=== PATIENT | female | born 1945 | race Caucasian/White ===

== ENCOUNTER 2016-08-08 08:28 | Day surgery (SDC) | END 2016-08-08 08:29 | disposition home or self-care (01) | CPT/HCPCS: 66984; A9270; V2632 ==

== ENCOUNTER 2017-02-14 13:27 | Outpatient (CLI) | payer MEDICARE, OTHER ==
--- NOTE | 2017-02-14 19:30 | Ultrasound Report ---
LIMITED ABDOMINAL ULTRASOUND: 02/14/2017 CLINICAL INDICATION: Hernia recurrence. TECHNIQUE: Real-time scanning was performed with licensing representative static images obtained. FINDINGS: Ultrasound of the palpable region identified by the patient was performed. There is recur rence of an abdominal wall hernia. Mesh is seen along the anterior margin, but a wide hernia neck is present. Superficial to the mesh, there is a 1.9 x 1.8 x 0.6 cm seroma. IMPRESSION: RECURRENCE OF AN ANTERIOR ABDOMINAL WALL HERNIA. SMALL SEROMA SUPERFICIAL TO THE MESH. JOB #: [id number] EXT JOB #:[id number]
== END 2017-02-14 13:28 | disposition home or self-care (01) ==
LOC: DI 13:27
PROVIDERS: ATTEND Family Medicine
DX: K43.2 Incisional hernia without obstruction or gangrene (principal)
CPT/HCPCS: 76705

== ENCOUNTER 2017-02-25 09:21 | Day surgery (SDC) | payer MEDICARE, OTHER ==
[2017-02-25] MEDS ORDERED: ceFAZolin 2 GM/50 ML 50 ML IV ONE (09:26)
[2017-02-25] MEDS ORDERED: LACTATED RINGERS 1,000 ML IV ONE ×2 (10:10→12:47)
[2017-02-25] MEDS ORDERED: ONDANSETRON 4 MG/2 ML VIAL ONE ×2 (10:37→13:17)
[2017-02-25] MEDS ORDERED: BUPIVACAINE 0.5% PF 30 ML VIAL SUBQ ONE (11:23)
[2017-02-25] MEDS ORDERED: METOCLOPRAMIDE 10 MG/2 ML VIAL IVP ONE (11:43)
[2017-02-25] MEDS ORDERED: MIDAZOLAM 2 MG/2 ML VIAL IVP ONE (11:43)
[2017-02-25] MEDS ORDERED: PHENYLEPHRINE 50 MG/5 ML VIAL IV ONE (11:43)
[2017-02-25] MEDS ORDERED: KETOROLAC 30 MG/ML VIAL IVP ONE (11:43)
[2017-02-25] MEDS ORDERED: LIDOCAINE-MPF 2% 5 ML VIAL IM ONE (11:43)
[2017-02-25] MEDS ORDERED: PROPOFOL 200 MG/20 ML VIAL IVP ONE (11:43)
[2017-02-25] MEDS ORDERED: ACETAMINOPHEN 1,000 MG/100 ML VIAL IV ONE (11:43)
[2017-02-25] MEDS ORDERED: ROCURONIUM 50 MG/5 ML VIAL IVP ONE (11:43)
[2017-02-25] MEDS ORDERED: DEXAMETHASONE 4 MG/ML VIAL IVP ONE (11:43)
[2017-02-25] MEDS ORDERED: NEOSTIGMINE 1 MG/1 ML 10 ML MDV IVP ONE (11:43)
[2017-02-25] MEDS ORDERED: ePHEDrine 50 MG/ML VIAL IVP ONE (11:43)
[2017-02-25] MEDS ORDERED: GLYCOPYRROLATE 1 MG/5 ML VIAL IVP ONE (11:43)
[2017-02-25] MEDS ORDERED: SUCCINYLCHOLINE 200 MG/10 ML VIAL IVP ONE (11:43)
--- NOTE | 2017-02-25 12:28 | OPERATIVE REPORT ---
Operative Report - General Procedure Date: 02/25/17 Planned Procedure: Incisional herniorrhaphy Pre-Op Diagnosis: Incisional hernia Post Op Diagnosis: Recurrent incisional hernia - Procedure Note Primary Surgeon: Panchito Mendoza Anesthesia Provider: Dr. Olga Frazier Anesthesia Technique: General ET tube, Local (30 mL 1/2% marcaine) Estimated Blood Loss (in cc): 5 (Aqfmwh=619 mL) Complications: None. - Other Other Information/Narrative: OPERATIVE DESCRIPTION/REPORT: After verbal and written informed consent was obtained detailing the risks of infection, bleeding requiring transfusion with its risks, nerve injury, and , and after I met with the patient confirming the surgery and the site of the surgery, the patient was brought to the operative suite and placed supine on the operating table. Great care was taken to avoid pressure points to prevent pressure necrosis or nerve injury. Monitoring devices were applied along with TEDs and pneumatic compressive stockings (to prevent DVT). The patient received preoperative antibiotics for surgical prophylaxis. Dr. Olga Frazier sedated and anethetized the patient for the entire procedure. The patient was prepped and draped in the usual sterile manner. With the patient draped my initials were clearly visible. A "time in" then confirmed that the paitient was identified with 3 identifiers (name, birthdate and medical record number), the history and physical was in the chart, the signed consent confirming the procedure was in the chart, the patient was in the correct position, the aforementioned prophylactic measures were in place or given, we had the correct personel and equipment to complete the procedure and that anesthesia, surgery and nursing were given an opportunuty to express any concerns. With the agreement of everyone in the room, we proceeded with the operation. A vertical midline incision was made tracing the previous incision and overlying the mass and dissection was carried down to the hernia sac using a combination of Metzenbaum scissors, scalpel, and Bovie electrocautery. The sac was cleared of overlying adherent tissue, and the fascial defect was delineated. There was a cystic structure encountered during the dissection that expressed yellow-green thick fluid and I cultured this fluid. The structure was not bowel or related to bowel. The cystic structure was outside the fascia and I am thinking it represents a sterile stitch fluid collection. The cystic structure was sent for pathologic evaluation. The fascia was cleared of any adherent tissue for a distance 1.5 cm from the defect. The sac was resected using a combination of Metzenbaum scissors and Bovie electrocautery. The sac was noted to include mesh on the patient's left hand side whereas the right side was well incorporated. The mesh on the left was resected. The defect was closed using a Ventralex ST Hernia PAtch (Ref#[id number]/ Lot#[id number]/Date 2018-10-29) sewing it in place using interrupted 2-0 PDS. This was sewn in place circumferentially and the fascia was closed over the mesh with a running 2-0 PDS. The subcutaneous tissues were copiously irrigated , and then closed using an interrupted 2-0 Vicryl. The fascia and skin were injected with 0.5% marcaine. Meticulous hemostasis was obtained using Bovie electrocautery. The skin incision was approximated with a running 4-0 Monocryl. At this point a time out was performed that confirmed that all the counts were correct, the procedure that was performed, the blood loss, the IV fluids administered, and the patient s condition. Having tolerated the procedure well, the patient was subsequently extubated and taken to recovery room in good and stable condition. Since there is no place on this document to record the procedure actually performed it was a recurrent incisional herniorrhaphy with mesh and culture of subcutaneous fluid.
[2017-02-25] MEDS ORDERED: fentaNYL 100 MCG/2 ML VIAL ONE (12:49)
[2017-02-25] MEDS ORDERED: SCOPOLAMINE PATCH TOP ONE (13:17)
[2017-02-25] MEDS ORDERED: PROMETHAZINE 25 MG/1 ML VIAL ONE (13:17)
[2017-02-25 14:06] VITALS: BP 116/47
== END 2017-02-25 09:22 | disposition home or self-care (01) ==
LOC: SDS 09:21
PROVIDERS: ATTEND Surgery
PROC: 0WUF0JZ Supplement Abdominal Wall with Synthetic Substitute, Open Approach (ICD-10-PCS; principal; 2017-02-25 10:30)
DX: K43.2 Incisional hernia without obstruction or gangrene (principal); J45.909 Unspecified asthma, uncomplicated; I25.10 Atherosclerotic heart disease of native coronary artery without angina pectoris; I25.2 Old myocardial infarction; G40.909 Epilepsy, unspecified, not intractable, without status epilepticus; I10 Essential (primary) hypertension; G47.00 Insomnia, unspecified; Z90.49 Acquired absence of other specified parts of digestive tract; K21.9 Gastro-esophageal reflux disease without esophagitis; Z79.82 Long term (current) use of aspirin
CPT/HCPCS: 49565; 49568; 93005; C1781; J0131; J0690; J3490; J7120; 87070; 87205; 88305

== ENCOUNTER 2018-03-03 08:00 | Outpatient (CLI) | payer MEDICARE, OTHER ==
[2018-03-03 19:12] LABS: CREATININE 0.8 mg/dL (0.4-1.0)
== END 2018-03-03 08:01 | disposition home or self-care (01) ==
LOC: LAB.WCP 08:00
PROVIDERS: ATTEND Orthopaedic Surgery
DX: R94.4 Abnormal results of kidney function studies (principal)
CPT/HCPCS: 36415; 82565; 84520

== ENCOUNTER 2018-04-14 08:00 | Outpatient (CLI) | payer MEDICARE, OTHER ==
[2018-04-14 19:20] LABS: BASOPHILS % (AUTO) 0.5 %; EOSINOPHILS % (AUTO) 2.3 %; HGB - HEMOGLOBIN 11.9 g/dL (12.0-16.0); LYMPHOCYTES % (AUTO) 64.1 %; MEAN CORPUSCULAR HEMOGLOBIN 29.2 pg (27.0-31.0); MEAN CORPUSCULAR VOLUME 88.4 fL (81.0-99.0); MEAN PLATELET VOLUME 9.1 fL (7.9-10.8); MONOCYTES % (AUTO) 5.6 %; NEUTROPHILS % (AUTO) 27.5 %; PLT - PLATELET COUNT 304 10^3/uL (130-450); RED BLOOD COUNT 4.07 10^6/uL (4.20-5.40); RED CELL DISTRIBUTION WIDTH 14.5 % (12.0-15.0); WHITE BLOOD COUNT 11.7 x10^3/uL (4.8-10.8)
[2018-04-14 19:23] LABS: ABNORMAL LYMPHS % (MANUAL) 0 %
[2018-04-14 19:30] LABS: ALBUMIN 4.1 g/dL (3.2-5.5); ALBUMIN/GLOBULIN RATIO 1.3 (1.0-2.2); BILIRUBIN,TOTAL 0.3 mg/dL (0.2-1.0); CALCIUM 9.4 mg/dL (8.5-10.3); CREATININE 0.9 mg/dL (0.4-1.0); TOTAL PROTEIN 7.2 g/dL (6.7-8.2)
[2018-04-14 19:51] LABS: BAND NEUTROPHILS % (MANUAL) 2 %; DIFFERENTIAL COMMENT MANUAL DIFFERENTIAL; EOSINOPHILS # (MANUAL) 0.4 10^3/uL (0-0.7); LYMPHOCYTES % (MANUAL) 58 %; MONOCYTES # (MANUAL) 0.6 10^3/uL (0.0-1.0); NEUTROPHILS # (MANUAL) 2.8 10^3/uL (1.5-6.6); NEUTROPHILS % (MANUAL) 22 %; PLATELET ESTIMATE, MANUAL NORMAL (130-450,000) (NORMAL); PLATELET MORPHOLOGY NORMAL APPEARANCE (NORMAL); RBC MORPHOLOGY (MULTIPLE) NORMAL APPEARANCE (NORMAL)
== END 2018-04-14 08:01 | disposition home or self-care (01) ==
LOC: LAB.WCP 08:00
PROVIDERS: ATTEND Family Medicine
DX: R51 Headache (principal)
CPT/HCPCS: 36415; 80053; 85025; 85651; 86140

== ENCOUNTER 2018-04-27 16:49 | Outpatient (CLI) | payer MEDICARE, OTHER ==
--- NOTE | 2018-04-28 11:08 | Ultrasound Report ---
Reason: PAROTID MASS, RIGHT Procedure Date: 04/27/2018 Accession Number: [id number] / [id number] Procedure: US - Head or Neck Soft Tissue CPT Code: FULL RESULT: EXAM: NECK ULTRASOUND EXAM DATE: 04/27/2018 05:30 PM. CLINICAL HISTORY: PAROTID MASS, RIGHT. COMPARISON: [facility] 05/31/2010 5:21 PM. TECHNIQUE: Real-time sonographic imaging was performed by the machine adjuster leader case trim utilizing color-flow. Multiple surgical sales representative static images were saved for review. FINDINGS: Along superior aspect of right parotid lobe, is a 2.0 x 1.0 x 1.1 cm, 1.2 cc solid noncompressible mass with probable small foci of internal vascularity. Increased through transmission. Margins are partially ill-defined. IMPRESSION: A 2 cm nonspecific mass is noted along superior aspect of right parotid gland. Margins are partially ill-defined. Potential malignancy. Case discussed with Dr. Engel on day of study at 11:05 AM. RADIA
== END 2018-04-27 16:50 | disposition home or self-care (01) ==
LOC: DI 16:49
PROVIDERS: ATTEND Family Medicine
DX: K11.8 Other diseases of salivary glands (principal)
CPT/HCPCS: 76536

== ENCOUNTER 2018-08-03 08:00 | Outpatient (CLI) | payer MEDICARE, OTHER ==
[2018-08-03 19:16] LABS: CHOL/HDL RATIO 3.4 (<4.4); CHOLESTEROL 165 mg/dL; HDL CHOLESTEROL 48 mg/dL; LDL CHOLESTEROL,CALCULATED 82 mg/dL; LDL/HDL RATIO 1.7 (<4.4); VLDL CHOLESTEROL 35 mg/dL
[2018-08-03 19:57] LABS: HB2 TOTAL 12.7 g/dL; HEMOGLOBIN A1C 0.62 g/dL; HEMOGLOBIN A1C % 6.6 % (4.6-6.2)
== END 2018-08-03 23:59 | disposition home or self-care (01) ==
LOC: LAB.WCP 08:00
PROVIDERS: ATTEND Family Medicine
DX: G40.909 Epilepsy, unspecified, not intractable, without status epilepticus (principal); R73.01 Impaired fasting glucose; E78.5 Hyperlipidemia, unspecified; Z11.59 Encounter for screening for other viral diseases
CPT/HCPCS: 80061; 83036; 83721; 86704

== ENCOUNTER 2019-02-10 16:03 | Outpatient (CLI) | payer MEDICARE, OTHER ==
--- NOTE | 2019-02-11 13:51 | XRAY Report ---
Reason: UNSPECIFIED FALL,INITIAL ENCOUNTER,LOW BACK PAIN Procedure Date: 02/10/2019 Accession Number: [id number] / [id number] Procedure: XR - Lumbar Spine 2 View CPT Code: FULL RESULT: EXAM: LUMBAR SPINE RADIOGRAPHY EXAM DATE: 02/10/2019 04:36 PM HISTORY: UNSPECIFIED Fall, initial Encounter, low BACK PAIN. COMPARISON: None. TECHNIQUE: AP and Lateral two view exam FINDINGS: Slight convex left curvature of the lower thoracic level with corresponding mild convex right curvature at the mid lumbar level. No fracture identified. There is evidence of mild diffuse disk space narrowing and small osteophyte formation. L4-L5 and L5-S1 have evidence of facet osteoarthritis. IMPRESSION: No fracture. Mild spinal asymmetry. Mild spondylosis. RADIA
== END 2019-02-10 16:04 | disposition home or self-care (01) ==
LOC: DI 16:03
PROVIDERS: ATTEND Family Medicine
DX: M47.816 Spondylosis without myelopathy or radiculopathy, lumbar region (principal); Z91.81 History of falling
CPT/HCPCS: 72100

== ENCOUNTER 2020-01-20 08:00 | Outpatient (CLI) | payer MEDICARE, OTHER ==
[2020-01-20 11:54] LABS: HB2 TOTAL 12.8 g/dL; HEMOGLOBIN A1C 0.67 g/dL; HEMOGLOBIN A1C % 6.9 % (4.6-6.2)
[2020-01-20 12:15] LABS: ALBUMIN/GLOBULIN RATIO 1.3 (1.0-2.2); ALKALINE PHOSPHATASE 51 IU/L (42-121); ALT ALANINE AMINOTRANSFERASE 24 IU/L (10-60); AST ASPARTATE AMINOTRANSFERASE 24 IU/L (10-42); BILIRUBIN,TOTAL 0.3 mg/dL (0.2-1.0); BUN - BLOOD UREA NITROGEN 23 mg/dL (6-20); CARBON DIOXIDE - CO2 27 mmol/L (21-32); CHLORIDE 107 mmol/L (101-111); CHOL/HDL RATIO 3.5 (<4.4); CHOLESTEROL 176 mg/dL; CREATININE 0.8 mg/dL (0.4-1.0); GLUCOSE 145 mg/dL (70-100); HDL CHOLESTEROL 51 mg/dL; LDL CHOLESTEROL,CALCULATED 93 mg/dL; LDL/HDL RATIO 1.8 (<4.4); SODIUM 140 mmol/L (135-145); VLDL CHOLESTEROL 32 mg/dL
== END 2020-01-20 23:59 | disposition home or self-care (01) ==
LOC: LAB.WCP 08:00
PROVIDERS: ATTEND Family Medicine
DX: I10 Essential (primary) hypertension (principal); R73.01 Impaired fasting glucose
CPT/HCPCS: 36415; 80053; 80061; 83036; 83721

== ENCOUNTER 2020-02-09 09:27 | Outpatient (CLI) | payer MEDICARE, OTHER ==
--- NOTE | 2020-02-09 10:04 | DEXA Report ---
Reason: POST MENOPAUSAL Procedure Date: 02/09/2020 Accession Number: [id number] / [id number] Procedure: DEX - Dexa Spine and/or Hip CPT Code: Final Report FULL RESULT: PROCEDURE: Dexa Spine and/or Hip INDICATIONS: POST MENOPAUSAL TECHNIQUE: Dual energy x-ray absorptiometry (DXA) was performed on a [employer] System. Regions measured are the AP Spine, femoral neck, and if needed forearm. COMPARISON: None. FINDINGS: Lumbar Spine: Bone Mineral Density 1.245 g/cm/cm,T score 0.5 Left Hip: Bone Mineral Density 0.852 g/cm/cm, T score -1.2 Left Femoral Neck: Bone Mineral Density 0.726 g/cm/cm, T score -2.2 (T score greater or equal to -1.0: NORMAL) (T score from -1.1 to -2.4: OSTEOPENIA) (T score less than or equal to -2.5 to: OSTEOPOROSIS) Impression: Left hip osteopenia. Lumbar spine within normal limits. Patients with diagnosis of osteoporosis or osteopenia should have regular bone mineral density assessment. For those eligible for Medicare, routine testing is allowed once every 2 years. Testing frequency can be increased for patients who have rapidly progressing disease or for those who are receiving medical therapy to restore bone mass. Reviewed by: Antwan Praker MD on 02/09/2020 10:03 AM PDT Approved by: Antwan Parker MD on 02/09/2020 10:03 AM PDT Station ID: [id number]
== END 2020-02-09 09:28 | disposition home or self-care (01) ==
LOC: DI 09:27
PROVIDERS: ATTEND Family Medicine
DX: M85.88 Other specified disorders of bone density and structure, other site (principal)
CPT/HCPCS: 77080

== ENCOUNTER 2022-09-19 07:07 | Day surgery (SDC) | payer MEDICARE, OTHER ==
[~2022-09-19 07:07] MED LIST: BRIMONIDINE 0.2% OPHTH DROPS 5 ML ONE; CYCLOPENTOLATE 1% OPHTH DROPS 2 ML ONE; EPINEPHrine 1 MG/ML AMP ONE; KETOROLAC 0.45% OPHTH DROPS ONE; PHENYLEPHRINE 2.5% OPHTH 2 ML DROPS ONE; PROPARACAINE 0.5% OPHTH DROPS 15 ML ONE; TIMOLOL 0.5% OPHTH DROPS ONE; TRIAMCIN/MOXIFLOX OPHTHALMIC 0.6 ML VIAL IO ONE
[2022-09-19] MEDS ORDERED: VANCOMYCIN OPHTH (TOPICAL) 10 MG/ML SYRINGE ONE (07:08)
[2022-09-19] MEDS ORDERED: MIDAZOLAM 2 MG/2 ML VIAL ONE (07:14)
[2022-09-19] MEDS ORDERED: LACTATED RINGERS 1,000 ML IV ONE (07:37)
--- NOTE | 2022-09-19 07:44 | ANESTHESIA ---
Pre-Anesthesia VS, & Labs - Diagnosis left cataract - Procedure left cataract extraction with IOL Vital Signs: Temp Pulse Resp BP Pulse Ox O2 Flow Rate 36.1 C L 75 20 157/75 H 100 09/19/22 07:23 09/19/22 07:23 09/19/22 07:23 09/19/22 07:23 09/19/22 07:23 Height: 5 ft 2 in Weight (kg): 81.8 kg Body Mass Index: 33.0 BMI Classification: Obese - NPO >8 hours - Is Patient ?: No - Lab Results Current Lab Results: Laboratory Tests 09/19/22 07:32: POC Whole Bld Glucose 140 H Home Medications and Allergies Home Medications: Ambulatory Orders Melatonin/Pyridoxine [Melatonin 5 mg Tablet] 5 mg PO DAILY PRN 09/18/22 Albuterol Sulfate [Proair Hfa] 8.5 gm IH ONCE PRN 06/07/13 Aspirin [Aspir 81] 81 mg PO DAILY 06/07/13 Atorvastatin Calcium [Lipitor] 40 mg PO HS 06/07/13 Docusate Calcium [Angel-Tin] 240 mg PO BID 06/07/13 Eletriptan HBr [Relpax] 40 mg PO ONCE PRN 06/07/13 Fenofibrate 145 mg PO HS 06/07/13 Ipratropium/Albuterol Inhaler [Combivent Inhaler] 1 puffs INH QID 06/07/13 Lansoprazole [Prevacid] 30 mg PO BID 06/07/13 Metoprolol Succinate [Toprol Xl] 25 mg PO ONCE 06/07/13 Nitroglycerin [Nitrostat] 0.4 mg SL ONCE PRN 06/07/13 levETIRAcetam [Keppra] 1,250 mg PO BID 06/07/13 levalbuterol HCL [Xopenex] 0.31 mg IH ONCE PRN 06/07/13 lisinopriL [Zestril] 5 mg PO BID 06/07/13 traMADol [Ultram] 50 mg PO Q6H PRN MDD 200 06/07/13 Gabapentin 300 mg PO TID 07/04/15 Cholecalciferol (Vitamin D3) [Vitamin D3] 8,000 units PO BID 02/20/17 ondansetron HCL [Zofran] 4 mg PO DAILY PRN 02/20/17 Venlafaxine ER [Effexor ER] 75 mg PO DAILY 09/14/19 Melatonin/Pyridoxine [Melatonin 5 mg Tablet] 5 mg PO DAILY PRN 09/18/22 Allergies/Adverse Reactions: Allergies Allergy/AdvReac Type Severity Reaction Status Date / Time Sulfa (Sulfonamide Allergy Intermediate Rash Verified 09/12/20 12:23 Antibiotics) Penicillins Allergy Unknown UNK Verified 09/12/20 12:23 duloxetine HCl * AdvReac Severe Cramps Verified 09/12/20 12:23 [From Cymbalta] erythromycin base AdvReac Severe Nausea Verified 09/12/20 12:23 [Erythromycin Base] omeprazole [From Prilosec] AdvReac Severe Dizziness Verified 09/12/20 12:23 tape AdvReac Intermediate Rash Uncoded 09/12/20 12:23 Anes History & Medical History - Anesthetic History Anesthesia Complications: reports: No previous complications - Medical History Cardiovascular: reports: Hypertension, High cholesterol, Coronary artery disease, Angina, [place], Other Pulmonary: reports: Asthma Gastrointestinal: reports: GERD Urinary: reports: Kidney stones Musculoskeletal: reports: Osteoarthritis, Fibromyalgia, Fatigue, Chronic back pain Skin: reports: None, Other Smoking Status: Never smoker History of Cancer?: Yes - Surgical History General: reports: Cholecystectomy, Appendectomy, Colonoscopy, EGD Eyes Ears Nose Throat (EENT): reports: Tonsil/Adenoidectomy Gynecologic: reports: Hysterectomy, Other Orthopedic: reports: Arthroscopic surgery Dermatologic: reports: Skin cancer surgery Exam General: Alert Dental: WNL Mouth Opening: Greater than 4 Fingerbreadths Neck Mobility: Normal Mallampati classification: II Respiratory: Lungs clear Cardiovascular: Regular rate Plan Anesthesia Type: MAC Consent for Procedure(s) Verified and Reviewed: Yes Code Status: Attempt Resuscitation ASA classification: 3-Severe systemic disease Is this case an emergency?: No
[2022-09-19] MEDS ORDERED: fentaNYL 100 MCG/2 ML VIAL ONE (08:15)
[2022-09-19] MEDS ORDERED: EPINEPHrine 1 MG/ML AMP IR ONE (08:16)
[2022-09-19] MEDS ORDERED: BRIMONIDINE 0.2% OPHTH DROPS 5 ML OPTH ONE (08:16)
[2022-09-19] MEDS ORDERED: BSS/LIDOCAINE/EPINEPHRINE 1 ML SYRINGE IO ONE (08:17)
[2022-09-19] MEDS ORDERED: VANCOMYCIN OPHTH (TOPICAL) 10 MG/ML SYRINGE TOP ONE (08:17)
[2022-09-19] MEDS ORDERED: PROPARACAINE 0.5% OPHTH DROPS 15 ML LEFTEYE ONE (08:17)
[2022-09-19] MEDS ORDERED: TIMOLOL 0.5% OPHTH DROPS OPTH ONE (08:17)
[2022-09-19] MEDS ORDERED: TRIAMCIN/MOXIFLOX OPHTHALMIC 0.6 ML VIAL IO ONE (08:17)
[2022-09-19] MEDS ORDERED: BSS/LIDOCAINE/EPINEPHRINE 1 ML VIAL ONE (08:20)
[2022-09-19] MEDS ORDERED: LACTATED RINGERS 900 ML IV ONE (08:26)
--- NOTE | 2022-09-19 08:35 | OPERATIVE REPORT ---
Operative Report - Other Other Information/Narrative: Date of Surgery: 09/19/22 Preop Dx: Visually significant cataract left eye. Cataract surgery was performed in the right eye on . Postop Dx: Same Procedure: Phacoemulsification with posterior chamber intraocular lens implant left eye Surgeon: Dr. Jassi Messina Anesthesia: Monitored anesthesia care Complications: None Operative Indications: This is a 77-year-old F with progressive vision loss in the left eye due to 2-3+ nuclear sclerotic, 2+ cortical, and vacuolar cataract. Best corrected visual acuity was 20/40 with glare to 20/80 vision in the left eye. Indications for surgery were: - Overall decrease in vision - Difficulty seeing words on a computer screen - Difficulty reading - Difficulty seeing words, closed captions, or game scores on TV - Difficulty driving in low light or at night - Difficulty driving at night because of headlights from other vehicles - Difficulty with glare or bright lights in any situation The patient was consented at length concerning the risks and benefits of cataract surgery after which the patient expressed a desire to proceed with surgery. Operative Procedure: The patient was taken into OR#3 and placed under monitored anesthesia care. A surgical time-out was conducted confirming correct patient, correct procedure, and correct surgical site. The patient was given topical anesthesia and then prepped and draped in the usual sterile fashion. The eye was entered at the 6 and 3 oclock positions. Intracameral Shugarcaine was inje cted into the anterior chamber followed by a dispersive viscoelastic. A continuous-tear curvilinear capsulorhexis was performed. The nucleus was hydrodissected and phacoemulsified. The cortex was evacuated using automated infusion and aspiration. A cohesive viscoelastic was injected into the capsular bag and a 18.5 diopter intraocular lens was inserted into the bag. Infusion and aspiration were used to evacuate the viscoelastic materials from the eye. The wounds were hydrated and the eye inflated to physiologic pressure using balanced salt solution. Approximately 0.25ml of a mixture of triamcinolone and moxifloxacin was injected trans-sclerally into the vitreous in the inferotemporal quadrant using a 30 gauge cannula. An additional 0.25ml of a mixture of triamcinolone and vancomycin was injected subconjunctivally in the superior quadrant for infection and inflammation prophylaxis. Wound integrity was checked with Weck-Anca sponges. The patient was taken from the operating room in good condition and given post-op instructions.
[2022-09-19 08:45] VITALS: BP 132/58
--- NOTE | 2022-09-19 09:09 | ANESTHESIA POST OP EVALUATION ---
Anesthesia Post Eval - Post Anesthesia Eval Vitals: Last Vital Signs Temp 36.5 C 09/19/22 08:39 Pulse 73 09/19/22 08:39 Resp 16 09/19/22 08:39 BP 132/58 H 09/19/22 08:39 Pulse Ox 96 09/19/22 08:39 O2 Flow Rate CV Function Including HR & BP: Stable Pain Control: Satisfactory Nausea & Vomiting: Negative Mental Status: Baseline Respiratory Status: Airway Patent Hydration Status: Satisfactory Anesthesia Complications: None
== END 2022-09-19 07:08 | disposition home or self-care (01) ==
LOC: SDS 07:07
PROVIDERS: ATTEND Ophthalmology
DX: E11.36 Type 2 diabetes mellitus with diabetic cataract (principal); H25.812 Combined forms of age-related cataract, left eye; E66.9 Obesity, unspecified; J45.909 Unspecified asthma, uncomplicated; I25.2 Old myocardial infarction; Z68.33 Body mass index [BMI] 33.0-33.9, adult; Z98.41 Cataract extraction status, right eye
CPT/HCPCS: 66984; A9270; J3490; J7120